=== PATIENT | female | born 1970 | race Caucasian/White ===

== ENCOUNTER 2016-07-05 12:39 | Emergency (ER) | payer OTHER ==
[~2016-07-05 12:39] MED LIST: BACLOFEN20 MG PO; BENADRYL PO; CLARITIN10 M3 PO; CYMBALTA PO; EC-NAPROSYN500 MG PO; FLEXERIL10 MG PO; IMITREX PO; LORTAB 101 TAB 10/5 PO; LORTAB 5/500 TA1 TA1; LORTAB 7.51 TAB 7.5/; NORFLEX100 M1 PO; NORVASC2.5 MG PO; ORUDIS75 M1 PO; PREDNISONE PO; PRILOSEC40 MG PO; REQUIP1 MG PO; VICODIN 5/1 TAB 5/50 PO; VICODIN PO; VITAMIN D350000 UNIT PO; VOLTAREN75 MG PO; XANAX0.5 MG PO; ZESTRIL10 M1 PO; ZESTRIL40 MG PO
== END 2016-07-05 12:45 | disposition home or self-care (01) ==
LOC: SED 12:39
DX: T78.40XA Allergy, unspecified, initial encounter (principal); F32.9 Major depressive disorder, single episode, unspecified; G25.81 Restless legs syndrome; F17.200 Nicotine dependence, unspecified, uncomplicated; Z98.890 Other specified postprocedural states; Z88.5 Allergy status to narcotic agent; Z88.1 Allergy status to other antibiotic agents; Z91.040 Latex allergy status; Z88.8 Allergy status to other drugs, medicaments and biological substances; Z79.899 Other long term (current) drug therapy; X58.XXXA Exposure to other specified factors, initial encounter
CPT/HCPCS: 99282